=== PATIENT | female | born 1940 | race Caucasian/White ===

== ENCOUNTER 2017-12-11 02:03 | Outpatient (CLI) | payer MEDICARE, BC, SELFPAY ==
[2017-12-11 11:50] LABS: Anion Gap 7.1 mmol/L (3-11); BUN 19 mg/dL (7-18); CO2 28.9 mmol/L (21.0-32.0); CREATININE 0.76 mg/dL (0.55-1.02); Calcium 8.3 mg/dL (8.5-10.1); Chloride 105 mmol/L (98-107); Cholesterol 166 mg/dL (50-200); Glucose 78 mg/dL (70-100); HDL Cholesterol 63 mg/dL (40-60); LDL CHOLESTEROL 91 mg/dL (<100); Potassium 4.4 mmol/L (3.5-5.1); Sodium 141 mmol/L (136-145); TSH (W/Ref FT4) 0.16 uIU/mL (0.358-3.74); Triglyceride 64 mg/dL (30-150)
[2017-12-11 12:35] LABS: FREE T4 1.57 ng/dL (0.76-1.46)
== END 2017-12-11 02:23 ==
DX: E03.9 Hypothyroidism, unspecified (principal)
CPT/HCPCS: 36415; 80048; 80061; 83721; 84439; 84443

== ENCOUNTER 2018-01-17 00:27 | Outpatient (CLI) | payer MEDICARE, BC, SELFPAY ==
--- NOTE | 2018-01-17 15:12 | DI.MAMMO_ITS ---
SYMPTOMS/DIAGNOSIS: SCREENING, Z12.31, FAMILY HISTORY BREAST CA, Z80.3 BILATERAL SCREENING MAMMOGRAM: Comparison is made with exams from 2012 through 2016. The breasts are composed of scattered fibroglandular densities. No suspicious masses or suspicious microcalcifications are seen. There has been no significant change. IMPRESSION: Category 1B, negative mammogram. Routine screening is recommended. SA ASSESSMENT OF FINDINGS: Negative. Category 1. Patient will receive a letter notifying them of these results. BI-RADS category B. There are scattered areas of fibroglandular density.
== END 2018-01-17 00:47 ==
DX: Z12.31 Encounter for screening mammogram for malignant neoplasm of breast (principal); Z80.3 Family history of malignant neoplasm of breast
CPT/HCPCS: 77063; 77067

== ENCOUNTER 2018-01-21 09:34 | Outpatient (CLI) | payer MEDICARE, BC, SELFPAY ==
[2018-01-21 10:49] LABS: ALT 25 U/L (12-78); AST 20 U/L (15-37); Albumin 3.8 g/dL (3.4-5.0); Alkaline Phosphatase 87 U/L (46-116); Anion Gap 7.4 mmol/L (3-11); BUN 19 mg/dL (7-18); Bilirubin, Total 0.5 mg/dL (0.2-1.0); CO2 29.6 mmol/L (21.0-32.0); CREATININE 0.71 mg/dL (0.55-1.02); Calcium 8.2 mg/dL (8.5-10.1); Chloride 107 mmol/L (98-107); Cholesterol 198 mg/dL (50-200); Glucose 87 mg/dL (70-100); HDL Cholesterol 69 mg/dL (40-60); LDL CHOLESTEROL 115 mg/dL (<100); Potassium 4.4 mmol/L (3.5-5.1); Sodium 144 mmol/L (136-145); TSH (W/Ref FT4) 2.59 uIU/mL (0.358-3.74); Total Protein 6.6 g/dL (6.4-8.2); Triglyceride 101 mg/dL (30-150)
== END 2018-01-21 09:54 ==
DX: E03.9 Hypothyroidism, unspecified (principal)
CPT/HCPCS: 36415; 80053; 80061; 83721; 84443

== ENCOUNTER 2018-12-18 02:29 | Outpatient (CLI) | payer MEDICARE, BC, SELFPAY ==
[2018-12-18 10:04] LABS: Calculated LDL 95 mg/dL; Cholesterol 180 mg/dL (50-200); HDL Cholesterol 70 mg/dL (40-60); Triglyceride 75 mg/dL (30-150)
== END 2018-12-18 02:49 ==
DX: E78.5 Hyperlipidemia, unspecified (principal)
CPT/HCPCS: 36415; 80061

== ENCOUNTER 2018-12-25 01:27 | Outpatient (CLI) | payer MEDICARE, BC, SELFPAY ==
[2018-12-25 09:55] LABS: ALT 18 U/L (14-59); AST 20 U/L (15-37); Albumin 3.6 g/dL (3.4-5.0); Alkaline Phosphatase 96 U/L (46-116); Anion Gap 8.5 mmol/L (3-11); BUN 17 mg/dL (7-18); Bilirubin, Total 0.5 mg/dL (0.2-1.0); CO2 27.5 mmol/L (21.0-32.0); Calcium 8.1 mg/dL (8.5-10.1); Chloride 108 mmol/L (98-107); Glucose 81 mg/dL (70-100); Potassium 4.3 mmol/L (3.5-5.1); Sodium 144 mmol/L (136-145); TSH (W/Ref FT4) 2.68 uIU/mL (0.36-3.74); Total Protein 6.2 g/dL (6.4-8.2)
== END 2018-12-25 01:47 ==
DX: E03.9 Hypothyroidism, unspecified (principal); E05.00 Thyrotoxicosis with diffuse goiter without thyrotoxic crisis or storm; M15.9 Polyosteoarthritis, unspecified; N81.4 Uterovaginal prolapse, unspecified
CPT/HCPCS: 36415; 80053; 84443

== ENCOUNTER 2019-12-16 02:23 | Outpatient (CLI) | payer MEDICARE, BC, SELFPAY ==
[2019-12-16 11:19] LABS: ALT 26 U/L (14-59); AST 20 U/L (15-37); Albumin 3.9 g/dL (3.4-5.0); Alkaline Phosphatase 67 U/L (46-116); Anion Gap 4.9 mmol/L (3-11); BUN 22 mg/dL (7-18); Bilirubin, Total 0.7 mg/dL (0.2-1.0); CO2 29.1 mmol/L (21.0-32.0); CREATININE 0.66 mg/dL (0.55-1.02); Calcium 8.7 mg/dL (8.5-10.1); Calculated LDL 123 mg/dL (<100); Chloride 105 mmol/L (98-107); Cholesterol 210 mg/dL (<200); Glucose 85 mg/dL (74-106); HDL Cholesterol 72 mg/dL (40-60); Potassium 4.2 mmol/L (3.5-5.1); Sodium 139 mmol/L (136-145); TSH (W/Ref FT4) 1.71 uIU/mL (0.36-3.74); Total Protein 6.7 g/dL (6.4-8.2); Triglyceride 79 mg/dL (<150)
== END 2019-12-16 02:43 ==
DX: E03.9 Hypothyroidism, unspecified (principal); E78.5 Hyperlipidemia, unspecified; G47.00 Insomnia, unspecified; M15.9 Polyosteoarthritis, unspecified; R01.1 Cardiac murmur, unspecified
CPT/HCPCS: 36415; 80053; 80061; 84443

== ENCOUNTER 2020-01-12 00:34 | Outpatient (CLI) | payer MEDICARE, BC, SELFPAY ==
--- NOTE | 2020-01-12 12:23 | DI.MAMMO_ITS ---
EXAM: MG MAMMO SCREENING CLINICAL HISTORY: screening,Z12.39 TECHNIQUE: Mammograms were interpreted according to the usual protocol including computer analysis w [employer] CAD system, tomosynthesis and C-view imaging. COMPARISON: FINDINGS: The breasts are of moderate density with fairly symmetrical distribution of fibroglandular tissue. N o dominant mass or clumped microcalcification is identified in either breast. The current examinatio n is compared with previous examinations including January 2018 and there has been no gross interval change in appearance in comparison with prior studies. IMPRESSION: No specific evidence of malignancy at this time. Routine screening examinations are suggested at yea rly intervals in this age group according to the ACS ACR guidelines. BI-RADS Category 1 - Negative Breast Density - Category B - Scattered areas of fibroglandular density
== END 2020-01-12 00:54 ==
DX: Z12.31 Encounter for screening mammogram for malignant neoplasm of breast (principal)
CPT/HCPCS: 77063; 77067

== ENCOUNTER 2020-12-22 03:11 | Outpatient (CLI) | payer MEDICARE, BC, SELFPAY ==
[2020-12-22 13:04] LABS: ALT 24 U/L (14-59); AST 24 U/L (15-37); Alkaline Phosphatase 80 U/L (46-116); BUN 19 mg/dL (7-18); Bilirubin, Total 0.6 mg/dL (0.2-1.0); CREATININE 0.8 mg/dL (0.55-1.02); Calcium 8.8 mg/dL (8.5-10.1); Chloride 107 mmol/L (98-107); Glucose 86 mg/dL (74-106); Potassium 4.3 mmol/L (3.5-5.1); Sodium 143 mmol/L (136-145); TSH (W/Ref FT4) 1.77 uIU/mL (0.36-3.74); Total Protein 6.9 g/dL (6.4-8.2)
== END 2020-12-22 03:12 | disposition home or self-care (01) ==
LOC: LBO 03:11
DX: E78.5 Hyperlipidemia, unspecified; G47.00 Insomnia, unspecified; N81.4 Uterovaginal prolapse, unspecified; E05.00 Thyrotoxicosis with diffuse goiter without thyrotoxic crisis or storm
CPT/HCPCS: 36415; 80053; 84443

== ENCOUNTER → 2021-05-26 10:04 | Outpatient (BNVA) | payer MEDICARE, BC, SELFPAY | PROVIDERS: Visit Provider Physical Therapy Assistant | DX: Z12.11 Encounter for screening for malignant neoplasm of colon (principal); Z86.010 Personal history of colon polyps; Z80.0 Family history of malignant neoplasm of digestive organs ==

== ENCOUNTER 2021-05-27 09:14 | Emergency (ER) | payer MEDICARE, BC, SELFPAY ==
[2021-05-27 09:22] VITALS: BP 163/76; PULSE 72; RESP 16; TEMP 36.6; O2SAT 98
[2021-05-27] MEDS: Normal Saline 1,000 ML 1000 ML IV (10:20)
[2021-05-27 10:23] LABS: Abs Immature Grans 0.02 10^3/uL (0.0-0.06); Absolute Basophil Count 0.04 10^3/uL (0.0-0.2); Absolute Eosinophil Count 0.09 10^3/uL (0.0-0.7); Absolute Lymphocyte Count 1.29 10^3/uL (1.2-3.4); Absolute Monocyte Count 0.95 10^3/uL (0.1-0.8); Absolute Neutrophil Count 5.19 10^3/uL (1.2-6.7); Basophils % 0.5; Eosinophils % 1.2; HGB 12.9 g/dL (11.2-15.7); Immature Grans % 0.3; MCH 30.5 pg (27.0-33.0); MCHC 32.3 % (32.0-36.0); MCV 94.6 fL (80-95); MPV 10.5 fL (8.0-11.0); Monocytes % 12.5; Neutrophils % 68.5; Nucleated RBC 0 %; Platelet Count 239 10^3/uL (130-400); RBC 4.23 10^6/uL (3.93-5.22); RDW-SD 48.4 fL; WBC 7.58 10^3/uL (4.4-10.8)
[2021-05-27 10:42] LABS: ALT 29 U/L (14-59); AST 36 U/L (15-37); Albumin 4.1 g/dL (3.4-5.0); Alkaline Phosphatase 73 U/L (46-116); Anion Gap 6.2 mmol/L (3-11); BUN 20 mg/dL (7-18); Bilirubin, Total 0.8 mg/dL (0.2-1.0); CO2 26.8 mmol/L (21.0-32.0); CREATININE 0.7 mg/dL (0.55-1.02); Chloride 105 mmol/L (98-107); Glucose 91 mg/dL (74-106); Potassium 4.5 mmol/L (3.5-5.1); Sodium 138 mmol/L (136-145); Total Protein 7.4 g/dL (6.4-8.2)
--- NOTE | 2021-05-27 10:46 | ED.GENADUL_ITS ---
Discharge Plan Disposition Patient Disposition: HOME Condition: Stable Discharge Details Clinical Impression: Surgical complication Primary Care Provider: Estephania [place] ED Provider: Jack Mallory Home Meds and New Rx's Prescriptions: Continued amoxicillin 500 mg capsule 500 mg PO BID 0RF polyethylene glycol 3350 17 gram/dose powder 238 g PO ONCE Qty: 238 0RF Rx Instructions: take per colonoscopy instructions bisacodyl [Dulcolax (bisacodyl)] 5 mg tablet,delayed release (DR/EC) 5 mg PO ONCE Qty: 4 0RF Rx Instructions: take per colonoscopy instructions levothyroxine 50 mcg tablet 50 mcg PO DAILY Qty: 90 3RF simvastatin 20 mg tablet 20 mg PO QPM Qty: 90 3RF naproxen sodium [Aleve] 220 mg tablet 220 mg PO PRN 0RF Discharge Instructions Additional Instructions: At this time your laboratory values are unremarkable, you have had no more episodes of bloody mucus, and are asymptomatic. I see no indication that you are having active nosebleed and this very well could be residual blood mixed in with mucus from your sinuses secondary to your surgery on Saturday. Please watch for new or worsening symptoms and return to the ER for any concerns. Otherwise follow-up with your oral surgeon on Saturday as already scheduled. Medical Decision Making This is an 81-year-old female who had extensive dental surgery on Saturday, presenting to the ER stating that she felt postnasal mucus drip and when she coughed it out noticed there was blood in it. She denies any obvious epistasis. Denies easy bruising or bleeding. She is currently asymptomatic. Clinically she appears well, nontoxic. She has facial ecchymosis but this would be consistent with her recent surgery. Her posterior pharynx is unremarkable. I believe this is likely not an active epistasis for bleeding from her recent surgery but rather the way she describes the blood mixed in with her mucus I wonder if this is residual blood from the surgery. She states that she had to lay down, head was tilted and her mouth was open for several hours. She is concerned about the potential dehydration. Plan is to obtain IV access, obtain CBC, CMP, coags, and give IV fluid. This will also give us time to observe her. Patient was observed in the ER, no evidence of decompensation. She denies any additional episodes of bloody mucus. She denies black tarry stools or bright red blood in her stools. She denies any chest pain, shortness of breath abdominal pain, nausea or vomiting. Patient was witnessed ambulating steadily to the restroom multiple times Laboratory values were unremarkable. She remains hemodynamically stable. Again she has had no additional episodes and remains asymptomatic. Strict discharge and return precautions were provided. Otherwise she will follow up with her dentist as already scheduled on Saturday. This documentation was generated using [employer] dictation system, please disregard any oddities of phrase or misspellings. Medical Records Medical records reviewed: Yes I reviewed the patient's medical records. Lab Data Lab results reviewed: Yes I reviewed the patient's lab results. Labs: Laboratory Tests Range/Units 05/27/21 05/27/21 05/27/21 10:16 10:16 10:16 WBC (4.4-10.8) 10^3/uL 7.58 RBC (3.93-5.22) 10^6/uL 4.23 Hgb (11.2-15.7) g/dL 12.9 Hct (36.0-46.0) % 40.0 MCV (80-95) fL 94.6 MCH (27.0-33.0) pg 30.5 MCHC (32.0-36.0) % 32.3 RDW (11.7-14.6) % 14.0 Plt Count (130-400) 10^3/uL 239 MPV (8.0-11.0) fL 10.5 Immature Gran % 0.3 Neutrophils % 68.5 Lymphocytes % 17.0 Monocytes % 12.5 Eosinophils % 1.2 Basophils % 0.5 Nucleated RBC % % 0 Absolute Neutrophils (1.2-6.7) 10^3/uL 5.19 Absolute Lymphocytes (1.2-3.4) 10^3/uL 1.29 Absolute Monocytes (0.1-0.8) 10^3/uL 0.95 H Absolute Eosinophils (0.0-0.7) 10^3/uL 0.09 Absolute Basophils (0.0-0.2) 10^3/uL 0.04 PT (9.3-11.0) sec 10.3 INR (0.9-1.1) 1.0 APTT (21.0-27.5) sec 24.3 Sodium (136-145) mmol/L 138 Potassium (3.5-5.1) mmol/L 4.5 Chloride (98-107) mmol/L 105 Carbon Dioxide (21.0-32.0) mmol/L 26.8 Anion Gap (3-11) mmol/L 6.2 BUN (7-18) mg/dL 20 H Creatinine (0.55-1.02) mg/dL 0.7 Estimated GFR/1.73 m2 (mL/min/1.73m2) >= 60.00 Glucose (74-106) mg/dL 91 Calcium (8.5-10.1) mg/dL 9.0 Total Bilirubin (0.2-1.0) mg/dL 0.8 AST (15-37) U/L 36 ALT (14-59) U/L 29 Alkaline Phosphatase (46-116) U/L 73 Total Protein (6.4-8.2) g/dL 7.4 Albumin (3.4-5.0) g/dL 4.1 HPI General Mode of arrival: ambulatory . Date/Time Provider Initiated Documentation: 05/27/21 09:38 . Limitations to Documentation: no limitations . Information obtained by: patient . HPI Narrative: This is an 81-year-old female, past medical history that includes thyroid disease, hyperlipidemia, osteoarthritis, or recent dental surgery, presenting to the ER reporting concern of dehydration and potential nosebleed. Patient states that she had extensive dental work done on Saturday in [place], all of her upper teeth were extracted, bone grafts, and then rods implanted, she is scheduled to see her dentist again next week for follow-up. She states that her face is bruised and swollen but overall is improving, denies any significant complications during her procedure. She states this morning she felt she needed to clear some mucus from her sinuses and noticed mucus coming down the back of her throat that when she coughs out seem to be scattered with blood. She states this happened twice, both a couple of hours ago, and is now asymptomatic. She reports in general her mouth feels dry and she is concerned she may be de hydrated but has been eating and drinking well. She denies any anterior nosebleed. She denies weakness, lightheadedness, anticoagulation, petechiae bruising, easy bruising or bleeding. Related Data Home Medications Medication Instructions Recorded Confirmed levothyroxine 50 mcg tablet 50 mcg PO DAILY #90 tab 08/19/20 05/27/21 simvastatin 20 mg tablet 20 mg PO QPM #90 tab 11/01/20 05/27/21 naproxen sodium 220 mg tablet 220 mg PO PRN tab 12/26/20 05/27/21 (Aleve) amoxicillin 500 mg capsule 500 mg PO BID 05/26/21 05/27/21 bisacodyl 5 mg tablet,delayed 5 mg PO ONCE #4 tab 05/26/21 05/27/21 release (Dulcolax (bisacodyl)) polyethylene glycol 3350 17 238 g PO ONCE #238 g 05/26/21 05/27/21 gram/dose oral powder Previous Rx's Medication Instructions Recorded levothyroxine 50 mcg tablet 50 mcg PO DAILY #90 tab 08/19/20 simvastatin 20 mg tablet 20 mg PO QPM #90 tab 11/01/20 bisacodyl 5 mg tablet,delayed 5 mg PO ONCE #4 tab 05/26/21 release (Dulcolax (bisacodyl)) polyethylene glycol 3350 17 238 g PO ONCE #238 g 05/26/21 gram/dose oral powder Allergies Allergy/AdvReac Type Severity Reaction Status Date / Time No Known Allergies Allergy Verified 05/27/21 09:26 General Stated Complaint: DentalOral BENI: 3 Review of Systems Constitutional Constitutional: Denies fever(s), Denies headache(s) and Denies weakness ENT Ears, Nose, Mouth, and Throat: Denies headache(s) and Denies neck pain Cardiovascular Cardiovascular: Denies chest pain and Denies dyspnea Respiratory Respiratory: Denies dyspnea Gastrointestinal Gastrointestinal: Denies abdominal pain, Denies nausea and Denies vomiting Genitourinary Genitourinary: Denies hematuria Musculoskeletal Musculoskeletal: Denies neck pain, Denies numbness and Denies tingling Integumentary/Breasts Skin/Breast: Denies rash Neurologic Neurologic: Denies headache(s), Denies numbness, Denies tingling and Denies weakness Hematologic/Lymphatic Hematologic/Lymphatic: Denies easy bleeding and Denies easy bruising PFSH All Active Problems (Updated 05/27/21 @ 11:21 by ALETHA Mcgee) Surgical complication (Acute) Graves disease (Acute 11/18/12) 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 Replaced with #3 ring pessary with support 8. 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 Son with stage 4 colon cancer in 50s Malignant neoplasm of skin (Acute 11/18/12) basal cell ca nose Hypothyroidism (Acute 11/18/12) Hyperlipidemia (Acute 11/18/12) Taking Simvastatin 20mg QD. Staying active and eating healthy. Recheck Lipids in 1 year. Generalized osteoarthrosis (Acute) Family hx-breast malignancy (Acute) Medical History Smoker Surgical History Total replacement of hip (~03/2010) Family History Mother , age 94 Essential hypertension Dementia Father , age 81 Pneumonia Sister Essential hypertension Hyperlipidemia Tongue cancer Maternal Grandmother Breast cancer Sister No problems noted. Son No problems noted. Daughter No problems noted. Social History Smoking/Tobacco Use Status: Former Tobacco Use tobacco type: cigarettes Quit Date: 04/08/09 Tobacco: How many years used: 50 Second Hand Exposure: Yes Smoking risk assessment performed?: Yes Alcohol Intake: current Alcohol Intake frequency: holidays/special occasions only Alcohol type: wine Drug use: Never Caregiver/Support person: No Household members: none Housing: house Do you need help understanding health information?: Rarely Pets and animals: No Sexually active: No Do you think of yourself as: straight/heterosexual Current gender identity: female What is your relationship status?: How often do you talk on the phone with friends or family?: three or more times per week Panel score (0-1 are the most socially isolated patients): 1 Rosa/Mandaen: Denominational Special rosa needs: No Seatbelt use: always Helmet use: No Drive intox or ride w/intox fork truck driver: No Do you feel safe in your relationship?: Yes Exam Const General: cooperative, healthy appearing, comfortable and no acute distress Orientation: alert, awake and oriented x3 [facility] Head: normal to inspection, normocephalic and atraumatic General nose exam: external nose normal, nares normal, septum normal, no nasal discharge and no epistaxis Face images: 1. Nontender ecchymosis. No significant swelling, erythema, induration or fluctuance. Skin is intact. Mouth: moist mucous membranes abnormal (Slightly dry) Throat: posterior oropharynx normal Other: Bottom teeth are in poor condition diffusely. Upper teeth are status post recent extraction with multiple rods in place. There is no active bleeding, signs of infection. No evidence of trismus Eyes General: appearance normal, both eyes and all related structures Conjunctivae: conjunctivae normal Neck Neck: full ROM, trachea midline, supple and nontender Other: Ecchymosis as documented above Resp Effort & Inspection: normal respiratory effort and able to speak in complete sentences Auscultation: not clear to auscultation bilaterally Cardio Rate: regular rate Rhythm: regular rhythm GI Palpation: soft and nontender Skin General skin exam: no rashes or lesions noted Neuro General: patient alert, patient awake, moves all extremities and no focal motor deficits Sensory Exam: no sensory deficits noted Psych Appearance: grossly normal Mental Status: mental status grossly normal Course Vital Signs Vital signs: Vital Signs Temperature 36.6 C 05/27/21 09:22 Pulse 72 05/27/21 09:22 Respiratory Rate 16 05/27/21 09:22 Blood Pressure 163/76 H 05/27/21 09:22 Pulse Oximetry 98 05/27/21 09:22 Temperature 36.6 C 05/27/21 09:22 Temperature Source Skin 05/27/21 09:22 Pulse 72 05/27/21 09:22 Respiratory Rate 16 05/27/21 09:22 Respiratory Effort 05/27/21 09:22 Blood Pressure 163/76 H 05/27/21 09:22 Pulse Oximetry 98 05/27/21 09:22 Oxygen Delivery Method Room Air 05/27/21 09:22 Oxygen Flow Rate 0 05/27/21 09:22 Pain Level 0 05/27/21 09:31 Lab/Test Results Lab/Test Results: Laboratory Tests Range/Units 05/27/21 10:16 WBC (4.4-10.8) 10^3/uL 7.58 RBC (3.93-5.22) 10^6/uL 4.23 Hgb (11.2-15.7) g/dL 12.9 Hct (36.0-46.0) % 40.0 MCV (80-95) fL 94.6 MCH (27.0-33.0) pg 30.5 MCHC (32.0-36.0) % 32.3 RDW (11.7-14.6) % 14.0 Plt Count (130-400) 10^3/uL 239 MPV (8.0-11.0) fL 10.5 Immature Gran % 0.3 Neutrophils % 68.5 Lymphocytes % 17.0 Monocytes % 12.5 Eosinophils % 1.2 Basophils % 0.5 Nucleated RBC % % 0 Absolute Neutrophils (1.2-6.7) 10^3/uL 5.19 Absolute Lymphocytes (1.2-3.4) 10^3/uL 1.29 Absolute Monocytes (0.1-0.8) 10^3/uL 0.95 H Absolute Eosinophils (0.0-0.7) 10^3/uL 0.09 Absolute Basophils (0.0-0.2) 10^3/uL 0.04
[2021-05-27 10:53] LABS: PTT Activated 24.3 sec (21.0-27.5); Prothrombin Time 10.3 sec (9.3-11.0)
[2021-05-27 11:21] VITALS: BP 153/65; PULSE 72; RESP 16; TEMP 36.8; O2SAT 98
== END 2021-05-27 11:27 | disposition home or self-care (01) ==
PROVIDERS: Emergency Provider Physician Assistant
DX: K91.840 Postprocedural hemorrhage of a digestive system organ or structure following a digestive system procedure (principal)
CPT/HCPCS: 36415; 80053; 96360; 99284; 85025; 85610; 85730; 99283

== ENCOUNTER 2021-06-29 01:50 | Outpatient (CLI) | payer MEDICARE, BC, SELFPAY ==
--- NOTE | 2021-06-29 15:00 | DI.US_ITS ---
APPROVED REPORT EXAM: Comprehensive 2D, Doppler, and color-flow Echocardiogram Patient Location: Out-Patient [employer] [facility] Dies: Bernice Thompson RDCS (AE) Indications: Heart murmur Other Information Study Quality: Good Conclusion Normal left ventricular chamber size. Mild concentric left ventricular hypertrophy. Estimated eject ion fraction is 60 to 65%. Wall motion is normal Normal right ventricular size and systolic function Both atria are mildly dilated Aortic valve is sclerotic. Number of leaflets could not be accurately determined. There is severe a ortic stenosis. Peak gradient is 88 mmHg. Mean is 54. Calculated aortic valve area 0.6 cm??. Ther e is no aortic regurgitation. Mildly thickened mitral leaflets with mild regurgitation Normal tricuspid valve with moderate regurgitation. Estimated right ventricular systolic pressure is 34 mmHg Wall motion Left Ventricle The left ventricle is normal size. The left ventricular systolic function is normal. The left ventric ular ejection fraction is within the normal range. Mild concentric left ventricular hypertrophy. Ther e is normal LV segmental wall motion. There is no ventricular septal defect visualized. LVEF is 59%. Right Ventricle The right ventricle is normal size. The right ventricular systolic function is normal. The RVSP is 33 .6 mmHg. Atria Left atrium is mildly dilated. Right atrium is mildly dilated. Chiari network is noted in the right atrium. The interatrial septum is intact with no evidence for an atrial septal defect. Atrial septal aneurysm is present. Aortic Valve Aortic valve is calcified. Number of aortic valve leaflets could not be assessed. Severe aortic steno sis. Peak aortic valve gradient is 87.9mmHg. Highest mean aortic valve gradient is 54.0mmHg. Calculat ed BREE by the continuity equation is .60cm2. No aortic regurgitation is present. Mitral Valve Mitral valve leaflets are mildly thickened. No evidence of mitral valve stenosis. Mild mitral regurgi tation. Tricuspid Valve The tricuspid valve is normal in structure. There is no tricuspid valve stenosis. Moderate tricuspid regurgitation. Pulmonic Valve The pulmonary valve is normal in structure. There is no pulmonic valvular stenosis. Trace pulmonic re gurgitation. Great Vessels The aortic root is normal in size. The ascending aorta is normal in size. Aortic arch is normal in ca liber. IVC is normal in size and collapses >50% with inspiration. Pericardium There is no pericardial effusion. 2D Dimensions IVSD d PLAX 1.15 cm F: 0.6-1.0 LV Vol A2C d MOD 72.5 mL LVPW d PLAX 1.12 cm F: 0.6 - 1.0 LV Vol A4C d MOD 78.5 mL LVID d PLAX 4.04 cm F: 3.8 - 5.2 LA vol/ BSA A2C s A-L 26.4 mL/m2 LVDs 2.70 cm F: 2.2 - 3.5 LA vol/ BSA A4C s A-L 35.6 mL/m2 Ao Root d 2.87 cm F: 2.7 - 3.3 LA Vol/ BSA Biplane s A-L 31.8 mL/m2 RA Area A4C 14.85 cm2 LA Area A4C s MOD 18.85 cm2 RA Vol/ BSA A4C s A-L 24.5 mL/m2 LA Area A2C s MOD 15.65 cm2 Ao Asc Diam d 3.33 cm F: 2.3 - 3.1 LV EF A4C MOD 59.4 % LV EF Teichholz 62.3 % LV EF A2C MOD 59.0 % LVEF (Hays's) 59.24 % F: 54 - 74 LV EF Biplane MOD 59.2 % LV Volume 63.88 mL F: 46 - 106 SV 46.27 mL LV Volume Index 40.68 mL/m2 F: 29 - 61 SV Index 29.41 mL/m2 LV Vol Biplane MOD 78.1 mL FS 33.10 % M-Mode TAPSE 2.15 cm (M/F) >1.7 LV Diastology MV E' medial 0.039 (>0.07 m/s) E/A Ratio 0.6 LV E/e MED 16.25 (<14) MV E Vmax 0.64 (0.4-1.3 m/s) MV E' lateral 0.060 (>0.1 m/s) MV A Vmax 1.05 (0.4-1.3 m/s) LV E/e LAT 10.55 (<14) MV E/A Ratio 0.59 MV E/E' medial 16.28 MV E/E' lateral 10.56 Aortic Valve LVOT Area 2.99 cm2 AoV Area Vmax 0.60 cm2 LVOT Vmax 0.94 m/s AoV Area/ BSA (Vmax) 0.38 cm2/m2 LVOT Mean Srinivasan. 0.66 m/s BREE Mean Srinivasan. 0.56 cm2 LVOT Peak Grad 3.5 mmHg BREE Mean Srinivasan. Index 0.35 cm2/m2 LVOT Mean Grad 2.0 mmHg LVOT VTI 0.212 m LVOT Diam s 1.90 cm AoV Vmax 4.69 m/s Velocity Ratio 0.20 AoV Mean Srinivasan. 3.53 m/s AoV Peak Grad 87.9 mmHg LVOT SV 63.29 mL AoV Mean Grad 54.0 mmHg AoV VTI 1.049 m AoV Area VTI 0.60 cm2 AoV Area/ BSA (VTI) 0.38 cm/m2 Mitral Valve MV DT 395 (160-240 msec) MR Vmax 5.92 m/s MV PHT 115 msec MR VTI 1.338 m MV Area PHT 1.92 cm2 MR Peak Grad 140.0 mmHg MV VTI 0.364 m MR Mean Grad 100.2 mmHg MV VTI Annulus 0.383 m MV Area VTI 1.83 (4.0-6.0 cm2) Pulmonary Valve PV Vmax 0.91 (0.5-1.5 m/s) RVOT Peak Gr. 1.25 mmHg PV Peak Grad 3.3 mmHg RVOT Mean Gr. 0.65 mmHg PV Mean Grad 1.9 mmHg RVOT VTI 0.119 m PV VTI 0.200 m RVOT Vmax 0.56 m/s Tricuspid Valve TR Peak Grad 30.5 mmHg TR Vmax 2.77 m/s RA Pressure 3.00 mmHg RVSP (TR) 33.6 mmHg
== END 2021-06-29 02:10 ==
PROVIDERS: Visit Provider Physical Therapy Assistant
DX: R01.1 Cardiac murmur, unspecified (principal)
CPT/HCPCS: 93306

== ENCOUNTER 2021-07-14 02:43 | Outpatient (CLI) | payer MEDICARE, BC, SELFPAY ==
[2021-07-14 13:23] LABS: Abs Immature Grans 0.02 10^3/uL (0.0-0.06); Absolute Basophil Count 0.05 10^3/uL (0.0-0.2); Absolute Eosinophil Count 0.18 10^3/uL (0.0-0.7); Absolute Lymphocyte Count 1.44 10^3/uL (1.2-3.4); Absolute Monocyte Count 0.82 10^3/uL (0.1-0.8); Absolute Neutrophil Count 4.46 10^3/uL (1.2-6.7); Basophils % 0.7; Eosinophils % 2.6; HCT 43.2 % (36.0-46.0); HGB 13.7 g/dL (11.2-15.7); Immature Grans % 0.3; Lymphocytes % 20.7; MCH 30.5 pg (27.0-33.0); MCHC 31.7 % (32.0-36.0); MCV 96.2 fL (80-95); MPV 10.3 fL (8.0-11.0); Monocytes % 11.8; Neutrophils % 63.9; Nucleated RBC 0 %; Platelet Count 274 10^3/uL (130-400); RBC 4.49 10^6/uL (3.93-5.22); RDW 13.5 % (11.7-14.6); RDW-SD 48.8 fL; WBC 6.97 10^3/uL (4.4-10.8)
[2021-07-14 14:25] LABS: ALT 19 U/L (14-59); AST 21 U/L (15-37); Alkaline Phosphatase 87 U/L (46-116); Anion Gap 3.7 mmol/L (3-11); BUN 22 mg/dL (7-18); Bilirubin, Total 0.5 mg/dL (0.2-1.0); CO2 30.3 mmol/L (21.0-32.0); CREATININE 0.7 mg/dL (0.55-1.02); Calcium 9.2 mg/dL (8.5-10.1); Chloride 107 mmol/L (98-107); Glucose 82 mg/dL (74-106); Potassium 4.5 mmol/L (3.5-5.1); Sodium 141 mmol/L (136-145); Total Protein 7.1 g/dL (6.4-8.2)
== END 2021-07-14 02:44 | disposition home or self-care (01) ==
PROVIDERS: Visit Provider Internal Medicine Interventional Cardiology
DX: I35.0 Nonrheumatic aortic (valve) stenosis (principal)
CPT/HCPCS: 36415; 80053; 85025

== ENCOUNTER 2021-11-03 09:00 | Outpatient (RCR) | payer MEDICARE, BC, SELFPAY | END 2021-11-05 23:59 | disposition home or self-care (01) | LOC: CR 09:00 | PROVIDERS: PCP Nurse Practitioner; Visit Provider Internal Medicine Cardiovascular Disease | DX: Z51.89 Encounter for other specified aftercare (principal); Z95.2 Presence of prosthetic heart valve | CPT/HCPCS: S9472 ==

== ENCOUNTER 2021-11-29 09:00 | Outpatient (RCR) | payer MEDICARE, BC, SELFPAY | END 2021-12-06 23:59 | disposition home or self-care (01) | LOC: CR 09:00 | PROVIDERS: PCP Nurse Practitioner; Visit Provider Internal Medicine Cardiovascular Disease | DX: Z51.89 Encounter for other specified aftercare (principal); Z95.2 Presence of prosthetic heart valve | CPT/HCPCS: S9472 ==

== ENCOUNTER 2022-01-05 10:16 | Outpatient (RCR) | payer MEDICARE, BC, SELFPAY | END 2022-01-05 23:59 | disposition home or self-care (01) | LOC: CR 10:16 | PROVIDERS: PCP Nurse Practitioner; Visit Provider Internal Medicine Cardiovascular Disease | DX: Z51.89 Encounter for other specified aftercare (principal); Z95.2 Presence of prosthetic heart valve | CPT/HCPCS: S9472 ==

== ENCOUNTER 2022-01-15 02:57 | Outpatient (CLI) | payer MEDICARE, BC, SELFPAY ==
[2022-01-15 09:59] LABS: Abs Immature Grans 0.01 10^3/uL (0.0-0.06); Absolute Basophil Count 0.05 10^3/uL (0.0-0.2); Absolute Eosinophil Count 0.16 10^3/uL (0.0-0.7); Absolute Lymphocyte Count 1.08 10^3/uL (1.2-3.4); Absolute Monocyte Count 0.59 10^3/uL (0.1-0.8); Absolute Neutrophil Count 2.81 10^3/uL (1.2-6.7); Basophils % 1.1; Eosinophils % 3.4; HCT 39.9 % (36.0-46.0); HGB 12.8 g/dL (11.2-15.7); Immature Grans % 0.2; MCH 30.3 pg (27.0-33.0); MCHC 32.1 % (32.0-36.0); MCV 94 fL (80-95); MPV 11.3 fL (8.0-11.0); Monocytes % 12.6; Neutrophils % 59.7; Platelet Count 253 10^3/uL (130-400); RBC 4.23 10^6/uL (3.93-5.22); RDW 14.3 % (11.7-14.6); RDW-SD 49.2 fL
[2022-01-15 11:00] LABS: Calculated LDL 101 mg/dL (<100); Cholesterol 186 mg/dL (<200); HDL Cholesterol 72 mg/dL (40-60); TSH (W/Ref FT4) 3.57 uIU/mL (0.36-3.74); Triglyceride 68 mg/dL (<150)
[2022-01-15 11:14] LABS: Vitamin D 25 Total 73.1 ng/mL (30-100)
== END 2022-01-15 02:58 | disposition home or self-care (01) ==
LOC: LBO 02:58
PROVIDERS: Physical Therapy Assistant; PCP Nurse Practitioner; Visit Provider Nurse Practitioner
DX: E03.9 Hypothyroidism, unspecified (principal); E78.5 Hyperlipidemia, unspecified; M81.0 Age-related osteoporosis without current pathological fracture; R01.1 Cardiac murmur, unspecified; Z95.2 Presence of prosthetic heart valve
CPT/HCPCS: 36415; 80061; 82306; 84443; 85025; 85610

== ENCOUNTER 2022-02-05 09:00 | Outpatient (RCR) | payer MEDICARE, BC, SELFPAY | END 2022-02-05 23:59 | disposition home or self-care (01) | LOC: CR 09:00 | PROVIDERS: PCP Nurse Practitioner; Visit Provider Internal Medicine Cardiovascular Disease | DX: Z51.89 Encounter for other specified aftercare (principal); Z95.2 Presence of prosthetic heart valve | CPT/HCPCS: S9472 ==

== ENCOUNTER 2022-02-09 09:16 | Outpatient (RCR) | payer MEDICARE, BC, SELFPAY | END 2022-03-07 23:59 | disposition home or self-care (01) | LOC: CR 09:16 | PROVIDERS: PCP Nurse Practitioner; Visit Provider Internal Medicine Cardiovascular Disease | DX: Z51.89 Encounter for other specified aftercare (principal); Z95.2 Presence of prosthetic heart valve | CPT/HCPCS: S9472 ==

== ENCOUNTER 2022-07-31 03:06 | Outpatient (CLI) | payer MEDICARE, BC, SELFPAY ==
[2022-07-31 10:49] LABS: Anion Gap 6.4 mmol/L (3-11); BUN 21 mg/dL (7-18); CO2 29.6 mmol/L (21.0-32.0); CREATININE 0.8 mg/dL (0.55-1.02); Calcium 9.2 mg/dL (8.5-10.1); Chloride 105 mmol/L (98-107); Estimated GFR 73.06 (mL/min/1.73m2); Glucose 58 mg/dL (74-106); Sodium 141 mmol/L (136-145); TSH (W/Ref FT4) 2.68 uIU/mL (0.36-3.74); Vitamin B12 531 pg/mL (193-986)
== END 2022-07-31 03:07 | disposition home or self-care (01) ==
LOC: LBO 03:06
PROVIDERS: PCP Nurse Practitioner; Visit Provider Nurse Practitioner
DX: E03.9 Hypothyroidism, unspecified (principal); Z95.2 Presence of prosthetic heart valve
CPT/HCPCS: 36415; 80048; 82607; 83735; 84443

== ENCOUNTER 2022-10-08 01:03 | Outpatient (CLI) | payer MEDICARE, BC, SELFPAY ==
--- NOTE | 2022-10-08 08:30 | DI.US_ITS ---
Exam(s) US PELVIS TRANSVAGINAL EXAM: US PELVIS TRANSVAGINAL CLINICAL HISTORY: postmenopausal bleeding with pessary in place, N95.0 TECHNIQUE: Transabdominal and transvaginal imaging was performed using standard protocol. COMPARISON: CR LUMBAR SPINE COMPLETE from 09/21/2010 FINDINGS: A transit abdominal images are limited by lack of bladder distension UTERUS: Anteverted. 4.1 x 2.0 x 3.9 cm Endometrium: 2 mm, fluid within the endometrial cavity. No focal endometrial nodule Myometrium: 1.5 centimeter left-sided calcification, consistent with calcified fibroid. Cervix: Unremarkable. OVARIES: Right: Cyst or mass: 2 simple cysts are noted on the right ovary, 1 measuring 4.5 x 2.7 x 5.1 cm in t he other measuring 2.8 x 2.2 x 3.2 cm Left: Not visualized. DOPPLER: Color: Symmetric and uniform flow to both ovaries. No hyperemia. CUL-DE-SAC: Free fluid: None. IMPRESSION: Fluid within the endometrial cavity. Two simple appearing cysts of the right ovary. MRI could be considered for further evaluation. Left ovary not visualized. DATA REPOSITORY:
== END 2022-10-08 01:23 ==
PROVIDERS: PCP Nurse Practitioner; Visit Provider Obstetrics & Gynecology Gynecology
DX: N95.0 Postmenopausal bleeding (principal); N83.201 Unspecified ovarian cyst, right side
CPT/HCPCS: 76830; 76856

== ENCOUNTER → 2023-01-22 00:53 | Outpatient (CLI) | payer MEDICARE, BC, SELFPAY ==
--- NOTE | 2023-01-22 07:15 | DI.US_ITS ---
Exam(s) US PELVIS TRANSVAGINAL EXAM: US PELVIS TRANSVAGINAL CLINICAL HISTORY: f/u 2 R ovarian cysts noted on u/s 10/08/22,n83.201. TECHNIQUE: Transabdominal and transvaginal pelvic ultrasound was performed using standard protocol. COMPARISON: US US PELVIS TRANSVAGINAL from 10/08/2022 FINDINGS: UTERUS: Position: Anteverted. Size: 4.0 long by 2.1 AP by 3.2 transverse cm Endometrium: 0.1 cm. Normal for patient's menstrual status. There is fluid seen within the endometriu m. Myometrium: There is a calcified uterine fibroid measuring 1.5 cm. Cervix: Unremarkable. OVARIES: Right: In the right adnexa there are 2 cysts present. The larger measures 5.7 x 3.8 x 2.0 cm. The s maller measures 3.6 x 2.5 x 2.6 cm. Each of these have shown some increase in size compared to the p rior examination from 10/08/2022. Left: 2.3 x 1.8 x 2.0 cm Cyst or mass: No suspicious cystic or solid masses. DOPPLER: Color: Blood flow seen to the left ovary. CUL-DE-SAC: Free fluid: None. Other: None. IMPRESSION: 1. There is again seen fluid within the endometrial canal. 2. There are 2 cystic right adnexal lesions which have shown slight interval increase in size since . 3. Uterine fibroid. DATA REPOSITORY:
== END ==
PROVIDERS: PCP Nurse Practitioner; Visit Provider Obstetrics & Gynecology Gynecology
DX: N83.201 Unspecified ovarian cyst, right side (principal)
CPT/HCPCS: 76830; 76856

== ENCOUNTER 2023-02-15 09:49 | Outpatient (REF) | payer MEDICARE, BC, SELFPAY ==
--- NOTE | 2023-02-15 09:20 | SKI_PTH ---
PATIENT: Celia Pang LOC: [facility] U#:[id number] AGE/SX: 82/F ROOM: RE02/15/[address]: ALETHA Falcon : 1940 BED: DIS: 02/15/2023 SPEC #: [id number] RECD: 02/15/23 13:43 STATUS: PATTI REQ #: [id number] DESTINEE: 02/15/23 09:[address]: James Medeiros DEPT: Surgical Specimen RECD BY: Jonna Mcmahon ENTERED: 02/15/23 13:43 SP TYPE: ALISHA JOHNSON DR: Janneth Dotson APRN Tissues: 1 - SKIN BIOPSY(SHAVE/PUNCH) Procedures: SKIN LEVEL 4 Comments: [id number]
== END 2023-02-15 09:50 | disposition home or self-care (01) ==
LOC: LBN 09:49
PROVIDERS: PCP Nurse Practitioner; Visit Provider Physician Assistant
DX: D49.2 Neoplasm of unspecified behavior of bone, soft tissue, and skin (principal); C44.622 Squamous cell carcinoma of skin of right upper limb, including shoulder
CPT/HCPCS: 88305

== ENCOUNTER 2023-09-09 09:42 | Outpatient (CLI) | payer MEDICARE, BC, SELFPAY ==
[2023-09-09 09:36] LABS: ALT 24 U/L (14-59); AST 22 U/L (15-37); Albumin 3.5 g/dL (3.4-5.0); Alkaline Phosphatase 85 U/L (46-116); Anion Gap 6.6 mmol/L (3-11); BUN 20 mg/dL (7-18); Bilirubin, Total 0.5 mg/dL (0.2-1.0); CO2 31.4 mmol/L (21.0-32.0); CREATININE 0.8 mg/dL (0.55-1.02); Calcium 8.9 mg/dL (8.5-10.1); Calculated LDL 89 mg/dL (<100); Chloride 107 mmol/L (98-107); Cholesterol 172 mg/dL (<200); Estimated GFR 72.61 (mL/min/1.73m2); Glucose 90 mg/dL (74-106); HDL Cholesterol 67 mg/dL (40-60); Potassium 4.4 mmol/L (3.5-5.1); Sodium 145 mmol/L (136-145); TSH (W/Ref FT4) 2.84 uIU/mL (0.36-3.74); Total Protein 6.9 g/dL (6.4-8.2); Triglyceride 81 mg/dL (<150)
== END 2023-09-09 09:43 | disposition home or self-care (01) ==
LOC: LBO 09:43
PROVIDERS: PCP Nurse Practitioner; Visit Provider Nurse Practitioner
DX: E03.9 Hypothyroidism, unspecified (principal); E78.00 Pure hypercholesterolemia, unspecified
CPT/HCPCS: 36415; 80053; 80061; 84443

== ENCOUNTER 2024-02-04 16:29 | Outpatient (CLI) | payer MEDICARE, BC, SELFPAY ==
--- NOTE | 2024-02-04 15:45 | DI.RAD_ITS ---
Exam(s) XR KNEE LT 3V AP,LAT,LATRICIA EXAM: XR KNEE LT 3V AP,LAT,LATRICIA CLINICAL HISTORY: W19.XXXA, M25.562, M25.462 Fell today, landing on left knee.. TECHNIQUE: 2D digital imaging was performed. COMPARISON: No exams were available for comparison FINDINGS: 3 views No evidence of acute fracture but there is a prominent joint effusion noted signifying internal deran gement. There is significant osteoarthritic degenerative changes evident in both medial lateral compartments. There is moderate-advanced narrowing of the medial compartment. There is less narrowing of the lat eral compartment but there is an intra-articular bony excrescence off the articular surface of the la teral femoral condyle noted, best evident on the frontal view. This measures 7 mm wide and projects 2 mm into the joint space. Similar finding not seen in the medial compartment. Bone density is age-appropriate. Incidentally noted is a extra-articular calcification measuring 5 x 3 mm located just anterior to the patellar ligament. IMPRESSION: Degenerative changes in the medial lateral compartments as described above. Prominent joint effusion which may be related to degenerative changes or additional internal derangem ent in the knee. DATA REPOSITORY: RADIATION DOSE DELIVERED:
== END 2024-02-04 16:49 ==
LOC: DI 16:33
PROVIDERS: PCP Nurse Practitioner; Visit Provider Nurse Practitioner
DX: W19.XXXA Unspecified fall, initial encounter (principal); M25.462 Effusion, left knee
CPT/HCPCS: 73562

== ENCOUNTER 2024-04-29 00:36 | Outpatient (CLI) | payer MEDICARE, BC, SELFPAY ==
--- NOTE | 2024-04-29 06:30 | DI.US_ITS ---
Exam(s) US PELVIS TRANSVAGINAL EXAM: US PELVIS TRANSVAGINAL CLINICAL HISTORY: R ovarian cysts, surveillance,N83.201 TECHNIQUE: Ultrasound of the pelvis was performed both transabdominal and transvaginal. COMPARISON: US US PELVIS TRANSVAGINAL from 01/22/2023 FINDINGS: UTERUS: Measures 5 cm length x 1.8 cm AP x 3 cm wide. There is a partially calcified posterior myometrial fibroid measuring 1.4 x 1.4 cm, located slightly left of center, similar to the previous study. Endometrial thickness measures 1 mm., age-appropriate There is some fluid evident in the endometrial canal. The amount of fluid in the endometrial canal i s similar to the prior ultrasound of January 2023. No obvious endometrial polyps. CERVIX: There are no obvious nabothian cysts. RIGHT OVARY: The actual ovaries difficult to identified because of bowel gas. However, there are 2 adjacent cysts in the right adnexa. The larger measures 5.3 x 3.6 x 3.6 cm. Th e other measures 3.3 x 2.5 x 3.0 cm. These measurements are relatively similar to the measurements o f the cyst obtained on ultrasound examination of 01/22/2023. LEFT OVARY: Not able to be identified due to the amount of bowel gas. CUL-DE-SAC: No free fluid evident. IMPRESSION: 1. Minimal if any significant change in the findings of this ultrasound when compared to the prior ul trasound examination of January 2023. 2. The 2 simple appearing cyst in the right adnexa with measurements as above exhibit similar size an d appearance to the prior 2022 study. The left adnexa is obscured by bowel gas. 3. There is a similar amount of fluid in the endometrial canal again noted. The endometrium itself i s not thickened and there are no obvious polyps. 4. The size of the solitary posterior myometrial slightly left of center partially calcified uterine fibroid is unchanged. DATA REPOSITORY:
== END 2024-04-29 00:56 ==
LOC: DI 00:36
PROVIDERS: PCP Nurse Practitioner; Visit Provider Obstetrics & Gynecology Gynecology
DX: N83.201 Unspecified ovarian cyst, right side (principal)
CPT/HCPCS: 76830; 76856

== ENCOUNTER 2024-11-25 03:15 | Outpatient (CLI) | payer MEDICARE, BC, SELFPAY ==
[2024-11-25 08:55] LABS: ALT 22 U/L (14-59); AST 30 U/L (15-37); Albumin 3.7 g/dL (3.4-5.0); Alkaline Phosphatase 87 U/L (46-116); Anion Gap 7.6 mmol/L (3-11); BUN 20 mg/dL (7-18); Bilirubin, Total 0.7 mg/dL (0.2-1.0); CO2 29.4 mmol/L (21.0-32.0); Calcium 8.7 mg/dL (8.5-10.1); Calculated LDL 111 mg/dL (<100); Chloride 106 mmol/L (98-107); Cholesterol 191 mg/dL (<200); Estimated GFR 84.70 (mL/min/1.73m2); Glucose 90 mg/dL (74-106); HDL Cholesterol 69 mg/dL (>or=50); Potassium 4.7 mmol/L (3.5-5.1); Sodium 143 mmol/L (136-145); TSH (W/Ref FT4) 5.33 uIU/mL (0.36-3.74); Total Protein 7.2 g/dL (6.4-8.2); Triglyceride 56 mg/dL (<150)
== END 2024-11-25 03:16 | disposition home or self-care (01) ==
LOC: LBO 03:15
PROVIDERS: PCP Nurse Practitioner; Visit Provider Family Medicine
DX: E78.5 Hyperlipidemia, unspecified (principal); E78.00 Pure hypercholesterolemia, unspecified; Z95.2 Presence of prosthetic heart valve; E03.9 Hypothyroidism, unspecified
CPT/HCPCS: 36415; 80053; 80061; 84439; 84443

== ENCOUNTER → 2025-01-20 08:55 | Outpatient (BNVA) | payer MEDICARE, BC, SELFPAY | PROVIDERS: PCP Nurse Practitioner; Referring Provider Nurse Practitioner; Visit Provider Physical Therapy Assistant | DX: Z12.11 Encounter for screening for malignant neoplasm of colon (principal); Z80.0 Family history of malignant neoplasm of digestive organs | CPT/HCPCS: S0285 ==